=== PATIENT | female | born 1990 | race Caucasian/White ===

== ENCOUNTER 2016-07-16 11:01 | Emergency (ER) | payer OTHER ==
[~2016-07-16] VITALS: Ht 167.6 cm; Wt 81.6 kg
--- NOTE | 2016-07-16 11:01 | NUR ---
Patient JAVYAugustin ANA ROSA, triaged by RN. Waiting for an available bed.
[2016-07-16 11:07] VITALS: BP 125/80
--- NOTE | 2016-07-16 11:12 | NUR ---
Dr. Ervin evaluating patient while on ambulance [facility].
--- NOTE | 2016-07-16 11:53 | NUR ---
Patient transferred to via wheelchair by tech.
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
[2016-07-16 12:30] VITALS: BP 125/80
--- NOTE | 2016-07-16 12:30 | NUR ---
Patient discharged with v/s stable. Written and verbal after care instructions given and explained. Patient alert, oriented and verbalized understanding of instructions. Ambulatory with CRUTCHES. PATIENT GIVEN A KNEE IMMOBILIZER AND CRUTCHES. PT SHOWN HOW TO USE CRUTCHES.PATIENT VERBALIZED UNDERSTANDING. All questions addressed prior to discharge. ID band removed. Patient advised to follow up with PMD. Rx of MOTRIN given. Patient educated on indication of medication including possible reaction and side effects. Opportunity to ask questions provided and answered.
== END 2016-07-16 12:30 | disposition home or self-care (01) ==
LOC: MED 11:01
PROC: 2W3LX1Z Immobilization of Right Lower Extremity using Splint (ICD-10-PCS; principal; 2016-07-16)
DX: S83.411A Sprain of medial collateral ligament of right knee, initial encounter (principal); S37.021A Major contusion of right kidney, initial encounter; W18.30XA Fall on same level, unspecified, initial encounter; Y92.89 Other specified places as the place of occurrence of the external cause; R03.0 Elevated blood-pressure reading, without diagnosis of hypertension
CPT/HCPCS: 29505; 73562; 99284

== ENCOUNTER 2017-09-26 16:55 | Emergency (ER) | payer OTHER ==
[~2017-09-26] VITALS: Ht 165.1 cm; Wt 73.9 kg
[2017-09-26 17:07] VITALS: BP 107/71
--- NOTE | 2017-09-26 18:05 | NUR ---
PT LEFT ER AFTER TRIAGE, NOT SEEN BY MD
== END 2017-09-26 18:05 | disposition left against medical advice (07) ==
LOC: MED 16:55
DX: R10.32 Left lower quadrant pain (principal); R11.2 Nausea with vomiting, unspecified; Z53.21 Procedure and treatment not carried out due to patient leaving prior to being seen by health care provider

== ENCOUNTER 2018-03-21 20:37 | Emergency (ER) | payer OTHER ==
[~2018-03-21] VITALS: Ht 167.6 cm; Wt 81.6 kg
[2018-03-21 20:37] VITALS: BP 117/82
--- NOTE | 2018-03-21 20:37 | NUR ---
PATIENT BIB W/C TO ER BED 2.
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
[2018-03-21] MEDS ORDERED: FAMOTIDINE 20 MG/2 ML VIAL IVP ONE (21:15)
[2018-03-21] MEDS ORDERED: NACL 0.9% 1,000 ML IV ONE (21:15)
[2018-03-21] MEDS ORDERED: ONDANSETRON 4 MG/2 ML VIAL IVP ONE (21:15)
[2018-03-21 21:38] LABS: BASOPHILS % (AUTO) 0.2 % (0.0-2.0); EOSINOPHILS # (AUTO) 0.1 K/uL (0-0.4); HEMATOCRIT 41.4 % (36-48); HEMOGLOBIN 13.7 g/dL (12.0-16.0); LYMPHOCYTES # (AUTO) 0.6 K/uL (2.5-16.5); LYMPHOCYTES % (AUTO) 4.8 % (20.5-51.1); MEAN CORPUSCULAR HEMOGLOBIN 32 pg (27-31); MEAN CORPUSCULAR HGB CONC 33 g/dL (33-37); MEAN CORPUSCULAR VOLUME 96.7 fL (80-94); MONOCYTES # (AUTO) 0.3 K/uL (0.8-1.0); MONOCYTES % (AUTO) 2.4 % (1.7-9.3); NEUTROPHILS % (AUTO) 91.6 % (42.2-75.2); PLATELET COUNT (AUTO) 278 K/uL (140-450); RED BLOOD CELL COUNT(AUTO) 4.28 MIL/uL (4.20-5.40); RED CELL DISTRIBUTION WIDTH 13.4 % (11.6-13.7); WHITE BLOOD COUNT (AUTO) 13.1 K/uL (4.8-10.8)
[2018-03-21 22:01] LABS: ALBUMIN 3.4 g/dL (3.4-5.0); ANION GAP 8.8 (8-16); CARBON DIOXIDE 31.9 mmol/L (21-32); CREATININE 0.7 mg/dL (0.6-1.3); POTASSIUM 3.7 mmol/L (3.5-5.1); TOTAL BILIRUBIN 0.6 mg/dL (0.0-1.0)
[2018-03-21 22:50] LABS: APPEARANCE,URINE HAZY (CLEAR); BILIRUBIN,URINE NEGATIVE (NEGATIVE); BLOOD, URINE NEGATIVE (NEGATIVE); COLOR,URINE YELLOW (YELLOW); LEUKOCYTE ESTERASE ,URINE TRACE (NEGATIVE); NITRITE, URINE NEGATIVE (NEGATIVE); UGLUCOSE NEGATIVE (NEGATIVE)
[2018-03-21 23:14] LABS: RBC,URINE 0-5 (RARE) /HPF (0-5)
[2018-03-21 23:54] VITALS: BP 118/72
== END 2018-03-21 23:48 | disposition home or self-care (01) ==
LOC: MED 20:37
DX: R10.12 Left upper quadrant pain (principal); R11.10 Vomiting, unspecified; I10 Essential (primary) hypertension
CPT/HCPCS: 36415; 80053; 81001; 81025; 83690; 85025; 87086; 93005; 96361; 96374; 96375; 99284; G0482; J2405; J3490; J7030

== ENCOUNTER 2018-08-02 18:02 | Emergency (ER) | payer OTHER ==
[~2018-08-02] VITALS: Ht 167.6 cm; Wt 72.6 kg
--- NOTE | 2018-08-02 18:02 | NUR ---
Patient BIBA BLS, transferred to bed 10. RN evaluating patient at bedside.
[2018-08-02 18:15] VITALS: BP 113/57
--- NOTE | 2018-08-02 18:41 | NUR ---
PT REFUSED X-RAY AT THIS TIME; I ORDERED S0FT TISSUE NECK X-RAY. PT STATED SHE DID NOT WANT TO MOVE OR GET UP FOR IT. PT STATED SHE SWALLOWED NEEDLE ABOUT <1 HR AND FEELS SHE EVACUATED POSSIBLE FB. ADMITS TO STOOL INCONTINENCE TODAY. SOMNOLENT APPEARING, WILL OPEN EYES AND ANSWER QUESTIONS BUT CLOSE EYES IMMEDIATELY AFTER. HEAVY MARIJUANA SMELL TO PT, SHE ADMITS HAS IT IN HER POCKET. FULL CLEAR SPEECH, NO DROOLING, NO ACCESSORY MUSCLE USE NOTED AT THIS TIME. NO GRIMACE OR MOAN NOTED. ENCOURAGED TO PROVIDE URINE FOR SAMPLE
[2018-08-02 19:02] VITALS: BP 127/63
--- NOTE | 2018-08-02 19:17 | NUR ---
Pt report given to Samra BUSTAMANTE. Transfer of care at this time.
--- NOTE | 2018-08-02 20:36 | NUR ---
PT BACK FROM , UNABLE TO PROVIDE URINE AT THIS TIME.
--- NOTE | 2018-08-02 20:40 | NUR ---
PATIENT STATED SHE WANTS TO LEAVE NOW, ADVISED TO STAY; PATIENT REFUSED. PATIENT LEFT WITHOUT BEING SEEN BY DR. RUELAS. NO FURTHER CARE PROVIDED FOR PATIENT.
== END 2018-08-02 20:40 | disposition left against medical advice (07) ==
LOC: EDBD → MED 18:02
DX: T18.9XXA Foreign body of alimentary tract, part unspecified, initial encounter (principal); F12.90 Cannabis use, unspecified, uncomplicated; F10.10 Alcohol abuse, uncomplicated; Z53.21 Procedure and treatment not carried out due to patient leaving prior to being seen by health care provider; X58.XXXA Exposure to other specified factors, initial encounter

== ENCOUNTER 2018-08-15 07:27 | Emergency (ER) | payer OTHER ==
[~2018-08-15] VITALS: Ht 165.1 cm; Wt 72.6 kg
[2018-08-15 07:31] VITALS: BP 126/79
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
--- NOTE | 2018-08-15 07:45 | NUR ---
CALLED [employer] AT [phone], SPOKE WITH PRATIMA, SHE STATED THAT PD WOULD COME IF PT IS ADMITTED OR IF PT WANTS TO MAKE A POLICE REPORT.
[2018-08-15] MEDS ORDERED: MORPHINE SULFATE 4 MG/ML SYR IVP ONE (07:50)
[2018-08-15] MEDS ORDERED: ONDANSETRON 4 MG/2 ML VIAL IVP ONE (07:50)
--- NOTE | 2018-08-15 08:12 | NUR ---
XRAY AT BEDSIDE
--- NOTE | 2018-08-15 08:47 | NUR ---
PLACED SLING ON PATIENT
--- NOTE | 2018-08-15 08:47 | NUR ---
PLACED A 4 IN ORTHOGLASS VOLAR SPLINT ON PATIENT'S RIGHT HAND.
[2018-08-15 09:23] VITALS: BP 110/77
--- NOTE | 2018-08-15 09:23 | NUR ---
Patient discharged with v/s stable. Written and verbal after care instructions given and explained. Patient alert, oriented and verbalized understanding of instructions. Ambulatory with steady gait. All questions addressed prior to discharge. ID band removed. Patient advised to follow up with PMD. Rx of norco and ibuprofen given. Patient educated on indication of medication including possible reaction and side effects. Opportunity to ask questions provided and answered. Addendum: 08/15/18 at 0924 by TARIK bus pass and orthopedics information given to pt.
== END 2018-08-15 09:23 | disposition home or self-care (01) ==
LOC: EDBD → MED 07:27
DX: S52.591A Other fractures of lower end of right radius, initial encounter for closed fracture (principal); Y04.0XXA Assault by unarmed brawl or fight, initial encounter; Y93.89 Activity, other specified; Y92.89 Other specified places as the place of occurrence of the external cause; Y99.8 Other external cause status
CPT/HCPCS: 29125; 73110; 96374; 96375; 99283; J2270; J2405

== ENCOUNTER 2018-08-19 16:14 | Emergency (ER) | payer OTHER ==
[~2018-08-19] VITALS: Ht 167.6 cm; Wt 68.0 kg
[2018-08-19 16:21] VITALS: BP 124/90
--- NOTE | 2018-08-19 16:27 | NUR ---
TO BED 11 WITH STEADY GAIT
--- NOTE | 2018-08-19 16:28 | NUR ---
PT TO ER BED 11
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
--- NOTE | 2018-08-19 16:31 | NUR ---
DR LAO AT BEDSIDE
--- NOTE | 2018-08-19 16:49 | NUR ---
SLING APPLIED BY CHRISTINE EMT, PT VERBALIZES UNDERSTANING OF USE. CAP REFILL <3 SECONDS.
[2018-08-19 16:50] VITALS: BP 122/87
--- NOTE | 2018-08-19 16:50 | NUR ---
Patient discharged with v/s stable. Written and verbal after care instructions given and explained. Patient verbalized understanding. Ambulatory with steady gait. All questions addressed prior to discharge. Advised to follow up with PMD.
== END 2018-08-19 16:50 | disposition home or self-care (01) ==
LOC: EDBD → MED 16:14
DX: S52.501A Unspecified fracture of the lower end of right radius, initial encounter for closed fracture (principal); F17.210 Nicotine dependence, cigarettes, uncomplicated; X58.XXXA Exposure to other specified factors, initial encounter; Y93.89 Activity, other specified; Y92.89 Other specified places as the place of occurrence of the external cause; Y99.8 Other external cause status
CPT/HCPCS: 99281

== ENCOUNTER 2018-10-24 18:19 | Emergency (ER) | payer SELFPAY ==
[~2018-10-24] VITALS: Ht 170.2 cm; Wt 81.6 kg
[2018-10-24 18:21] VITALS: BP 116/76
--- NOTE | 2018-10-24 18:26 | NUR ---
TRIAGE COMPLETED BY EUSEBIO BUSTAMANTE AT BEDSIDE
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
--- NOTE | 2018-10-24 18:40 | NUR ---
X-RAY AT THE BEDSIDE.
--- NOTE | 2018-10-24 19:13 | NUR ---
REPORT GIVEN TO SILK EXAMINER RN FOR CONTINUITY OF CARE.
--- NOTE | 2018-10-24 19:15 | NUR ---
ASSUMED CARE OF PT FROM JS BUSTAMANTE.
[2018-10-24] MEDS ORDERED: IBUPROFEN 600 MG TAB PO ONE (19:20)
[2018-10-24 19:58] VITALS: BP 116/76
== END 2018-10-24 19:59 | disposition home or self-care (01) ==
LOC: MED 18:19
DX: S63.501A Unspecified sprain of right wrist, initial encounter (principal); S62.101D Fracture of unspecified carpal bone, right wrist, subsequent encounter for fracture with routine healing; X58.XXXD Exposure to other specified factors, subsequent encounter; Y35.813A Legal intervention involving manhandling, suspect injured, initial encounter; Y93.89 Activity, other specified; Y92.89 Other specified places as the place of occurrence of the external cause; Y99.8 Other external cause status
CPT/HCPCS: 29125; 73110; 99283; Q0092

== ENCOUNTER 2018-11-20 22:09 | Emergency (ER) | payer OTHER ==
[~2018-11-20] VITALS: Ht 167.6 cm; Wt 72.6 kg
[2018-11-20 22:09] VITALS: BP 148/66
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
--- NOTE | 2018-11-20 22:09 | NUR ---
PT BIBA BLS. [employer] WITH PT
--- NOTE | 2018-11-20 22:45 | NUR ---
PT TAKEN TO CT
--- NOTE | 2018-11-20 22:51 | NUR ---
PT RETURNED FROM CT.
--- NOTE | 2018-11-20 23:44 | NUR ---
Dr. Naylor examining patient.
--- NOTE | 2018-11-21 00:15 | NUR ---
ALL RESULTS BACK AND NOTED BY JANES AND FOR IN CUSTODY WITH [employer]
[2018-11-21 00:20] VITALS: BP 129/70
--- NOTE | 2018-11-21 00:20 | NUR ---
PATIENT BIB [employer]. PATIENT EXAMINED BY DR. MENG. PATIENT MEDICALLY CLEARED AND RELEASED IN CUSTODY IN STABLE CONDITION. ORIGINAL PRE-BOOK FORM GIVEN TO [employer]
== END 2018-11-21 00:20 ==
LOC: MED 22:09
DX: S01.01XA Laceration without foreign body of scalp, initial encounter (principal); W22.8XXA Striking against or struck by other objects, initial encounter; Y93.89 Activity, other specified; Y92.89 Other specified places as the place of occurrence of the external cause; Y99.8 Other external cause status
CPT/HCPCS: 12001; 70450; 90471; 90715; 99284

== ENCOUNTER 2018-12-24 01:00 | Emergency (ER) | payer OTHER ==
[~2018-12-24] VITALS: Ht 167.6 cm; Wt 81.6 kg
[2018-12-24 01:00] VITALS: BP 138/76
[2018-12-24 02:34] VITALS: BP 138/76
== END 2018-12-24 02:34 ==
LOC: MED 01:00
DX: S42.301S Unspecified fracture of shaft of humerus, right arm, sequela (principal); S01.01XD Laceration without foreign body of scalp, subsequent encounter; Z02.89 Encounter for other administrative examinations; X58.XXXD Exposure to other specified factors, subsequent encounter
CPT/HCPCS: 73090; 99283